=== PATIENT | male | born 1995 | race American Indian/Alaskan Native ===

== ENCOUNTER 2017-03-03 14:00 | Emergency (ER) | payer OTHER, BC ==
[2017-03-03 15:31] VITALS: BP 118/69
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
[2017-03-03] MEDS ORDERED: NORCO 5/325 PO ONE (18:42)
[2017-03-03] MEDS ORDERED: MOTRIN PO ONE (18:56)
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
== END 2017-03-03 19:50 | disposition home or self-care (01) ==
LOC: ED 14:00
DX: S80.211A Abrasion, right knee, initial encounter (principal); S09.90XA Unspecified injury of head, initial encounter; G44.319 Acute post-traumatic headache, not intractable; M25.512 Pain in left shoulder; F17.200 Nicotine dependence, unspecified, uncomplicated; F12.10 Cannabis abuse, uncomplicated; V49.49XA Driver injured in collision with other motor vehicles in traffic accident, initial encounter; Y93.9 Activity, unspecified; Y92.9 Unspecified place or not applicable; Y99.9 Unspecified external cause status
CPT/HCPCS: 70450; 72125; 99283